=== PATIENT | female | born 1965 | race Caucasian/White ===

== ENCOUNTER → 2018-02-01 | Outpatient (CLI) | payer BC ==
[~2018-02-01] MED LIST: ACETAMINOPHEN PO; ARNI120T TP; CART1TAB4 PO; DOCU100T3 PO; FAMO1TAB25 PO; FLUT9.9S NS; HYDR-882 PO; MULT-516 PO; ONDA4TAB7 PO; [UNRECOGNIZED DRUG - CODE] IM; [UNRECOGNIZED DRUG - OTHER] TP
== END ==
LOC: STAR 13:25
PROVIDERS: ATTEND Surgery
DX: Z02.9 Encounter for administrative examinations, unspecified (principal)

== ENCOUNTER 2018-02-09 13:59 | Day surgery (SDC) | payer BC ==
[~2018-02-09] VITALS: Ht 170.2 cm; Wt 118.3 kg
[~2018-02-09 13:59] MED LIST changes: -HYDR-882 PO; -ONDA4TAB7 PO
[2018-02-09] MEDS ORDERED: LACTATED RINGERS 1,000 ML IV SCH ×2 (14:15→20:00)
[2018-02-09] MEDS ORDERED: LIDOCAINE-MPF 1%, 2ML INFIL ONE (14:30)
[2018-02-09 14:48] LABS: HCG UR SG 1.002 (1.003-1.030)
[2018-02-09] MEDS ORDERED: BUPIVACAINE/PF-EPI 0.5% 1:200K ONE (16:36)
[2018-02-09] MEDS ORDERED: FENTANYL PF 250 MCG/5ML ONE (16:54)
[2018-02-09] MEDS ORDERED: MIDAZOLAM 1 MG/ML, 2ML ONE (16:54)
[2018-02-09] MEDS ORDERED: FAMOTIDINE 20 MG TABLET ONE (17:13)
[2018-02-09] MEDS ORDERED: TAMSULOSIN 0.4 MG CAP.ER.24H ONE (17:14)
[2018-02-09] MEDS ORDERED: ACETAMINOPHEN 500 MG TABLET ONE (17:14)
[2018-02-09] MEDS ORDERED: METOCLOPRAMIDE 10MG TABLET ONE (17:14)
[2018-02-09] MEDS ORDERED: GABAPENTIN 300 MG CAPSULE ONE (17:14)
[2018-02-09] MEDS ORDERED: SUCCINYLCHOLINE 20 MG/ML, 10ML ONE (17:18)
[2018-02-09] MEDS ORDERED: ROCURONIUM 10 MG/ML,10ML ONE (17:18)
[2018-02-09] MEDS ORDERED: PROPOFOL 10 MG/ML, 20ML ONE (17:18)
[2018-02-09] MEDS ORDERED: GLYCOPYRROLATE 0.2MG/1ML, 5ML ONE (17:18)
[2018-02-09] MEDS ORDERED: DEXAMETHASONE 4 MG/ML, 1ML ONE (17:18)
[2018-02-09] MEDS ORDERED: CEFAZOLIN 1,000 MG ONE (17:18)
[2018-02-09] MEDS ORDERED: NEOSTIGMINE 1 MG/ML, 10ML ONE (17:18)
[2018-02-09] MEDS ORDERED: TAMSULOSIN 0.4 MG CAP.ER.24H PO ONE (17:30)
[2018-02-09] MEDS ORDERED: ACETAMINOPHEN 500 MG TABLET PO ONE (17:30)
[2018-02-09] MEDS ORDERED: FAMOTIDINE 20 MG TABLET PO ONE (17:30)
[2018-02-09] MEDS ORDERED: METOCLOPRAMIDE 10MG TABLET PO ONE (17:30)
[2018-02-09] MEDS ORDERED: GABAPENTIN 300 MG CAPSULE PO ONE (17:30)
[2018-02-09] MEDS ORDERED: MEPERIDINE/PF 25MG/0.5ML IVPush PRN (18:00)
[2018-02-09] MEDS ORDERED: ALBUTEROL SULFATE 2.5 MG/3 ML NPPB PRN (18:00)
[2018-02-09] MEDS ORDERED: MORPHINE SULFATE 4 MG/ML, 1ML IVPush PRN (18:00)
[2018-02-09] MEDS ORDERED: ONDANSETRON 0.8 MG/ML ORAL SOL PO PRN (18:00)
[2018-02-09] MEDS ORDERED: PROMETHAZINE 25 MG/ML, 1ML IV PRN (18:00)
[2018-02-09] MEDS ORDERED: DIAZEPAM 5 MG/ML, 2ML IVPush PRN (18:00)
[2018-02-09] MEDS ORDERED: GLYCOPYRROLATE 0.4 MG/2 ML, 2ML ONE ×2 (18:18→18:19)
[2018-02-09] MEDS ORDERED: FENTANYL PF 100 MCG/2ML ONE (18:23)
[2018-02-09] MEDS ORDERED: OXYcodone 5 MG/5 ML ORAL.SOL UDC ONE (18:23)
[2018-02-09] MEDS: FENTANYL PF 100 MCG/2ML IV PRN ×2 (18:24→18:31)
[2018-02-09] MEDS: OXYcodone 5 MG/5 ML ORAL.SOL UDC PO PRN ×2 (18:26→21:57)
[2018-02-09] MEDS ORDERED: GLYCOPYRROLATE 0.2MG/1ML, 5ML IVPush ONE (18:30)
[2018-02-09] MEDS ORDERED: HYDROmorphone 2 MG/ML, 1ML IV PRN (20:00)
[2018-02-09] MEDS ORDERED: DIPHENHYDRAMINE 50 MG/ML, 1ML IVPush PRN (20:00)
[2018-02-09] MEDS ORDERED: ONDANSETRON 2MG/ML, 2ML IVPush PRN (20:00)
[2018-02-09] MEDS ORDERED: ONDA4TAB7 PO ×2 (21:27→21:28)
[2018-02-09] MEDS ORDERED: HYDR-882 PO (21:34)
== END 2018-02-09 21:50 | disposition home or self-care (01) ==
LOC: OUT 13:59 → 4NOR 19:27 → OUT 21:50
PROVIDERS: ATTEND Surgery
DX: K43.0 Incisional hernia with obstruction, without gangrene (principal)
CPT/HCPCS: 49561; 49568; 81025; C1781; J0330; J0690; J1100; J2250; J2704; J2710; J3010; J7120; J3490